=== PATIENT | female | born 1965 | race Caucasian/White ===

== ENCOUNTER 2016-12-21 12:08 | Emergency (ER) | payer OTHER ==
--- NOTE | 2016-12-21 14:10 | ED Physician Documentation ---
PD HPI UPPER EXT INJURY - Stated complaint Stated Complaint: LEFT ARM INJ - Chief complaint Chief Complaint: Ext Problem - History obtained from History obtained from: Patient - History of Present Illness Location: Other (She was jumping over a ditch and tripped and fell on an outstretched left arm and complains of wrist, elbow, shoulder pain. No other injuries. No head or neck injury. This happened today a little after 11 AM. She declines pain medication on initial evaluation.) Review of Systems Constitutional: reports: Reviewed and negative Ears: reports: Reviewed and negative Nose: reports: Reviewed and negative Throat: reports: Reviewed and negative PD PAST MEDICAL HISTORY - Past Medical History Past Medical History: No Other Past Medical History: hypothyroid, back injury - Past Surgical History Past Surgical History: Yes General: Cholecystectomy - Present Medications Home Medications: Ambulatory Orders Medication Instructions Recorded Confirmed HYDROcod/ACETAM 5/325 [[place] 5/325] 1 - 2 ea PO Q6H PRN #15 tablet 12/21/16 Levothyroxine Sodium [Synthroid] 137 mcg PO DAILY 12/21/16 12/21/16 - Allergies Allergies/Adverse Reactions: Allergies Allergy/AdvReac Type Severity Reaction Status Date / Time cephradine [From Velosef] Allergy Rash Verified 12/21/16 12:21 Penicillins Allergy Unknown Verified 12/21/16 12:21 Sulfa (Sulfonamide Allergy Unknown Verified 12/21/16 12:21 Antibiotics) - Social History Does the pt smoke?: No Smoking Status: Never smoker Does the pt drink ETOH?: No Does the pt have substance abuse?: No PD ED PE NORMAL - Vitals Vital signs reviewed: Yes - General General: Alert and oriented X 3, No acute distress - HEENT HEENT: PERRL, EOMI - Neck Neck: Supple, no meningeal sign, No bony TTP - Extremities Extremities: Other (Left wrist is mildly tender over the dorsum, not the snuffbox. She does have limited range of motion, both flexion and extension due to pain. The elbow is tender over the olecranon and radial head, mildly, limited range of motion but that may be referred from the shoulder which is quite tender over the humeral head and has no range of motion there. She has good radial pulse and normal sensation in all areas of the hand. The remainder of her extremities are nontender.) - Neuro Neuro: Alert and oriented X 3, Normal speech - Psych Psych: Normal mood, Normal affect Results - Vitals Vitals: Vital Signs - 24 hr 12/21/16 12/21/16 12:17 14:58 Temperature 36.7 C Heart Rate 78 79 Respiratory 16 16 Rate Blood Pressure 151/102 H 143/92 H O2 Saturation 98 97 Oxygen O2 Source Room air - Rads (name of study) L wrist Radiology: EMP read contemporaneously, See rad report L humerus Radiology: EMP read contemporaneously, See rad report L elbow Radiology: EMP read contemporaneously, See rad report PD MEDICAL DECISION MAKING - ED course ED course: 51-year-old woman after ground-level fall basically with a left humeral head fracture but no other fractures on x-ray. The patient and family were counseled as to the diagnosis and need for follow- up. I counseled the patient with regard to signs and symptoms that would necessitate an urgent reevaluation in the emergency department. They understand they are welcome to return at any time if worse or if not improving as expected. This document was made in part using voice recognition software. While efforts are made to proofread this documents, sound alike and grammatical errors may occur. Departure - Departure Disposition: 01 Home, Self Care Clinical Impression: Fracture of humeral head, left, closed Qualifiers: Encounter type: sequela Qualified Code(s): S42.292S - Other displaced fracture of upper end of left humerus, sequela Left wrist sprain Qualifiers: Encounter type: initial encounter Qualified Code(s): S63.502A - Unspecified sprain of left wrist, initial encounter Left elbow contusion Qualifiers: Encounter type: initial encounter Qualified Code(s): S50.02XA - Contusion of left elbow, initial encounter Condition: Good Record reviewed to determine appropriate education?: Yes Instructions: Humerus Fx Prescriptions: HYDROcod/ACETAM 5/325 [[place] 5/325] 1 - 2 ea PO Q6H PRN #15 tablet PRN Reason: Pain Comments: [place]-rays on CD with you. Return if worse. Your blood pressure was elevated today on check into the emergency department. This does not mean that you have hypertension, it is a common phenomenon to come to the emergency department and have elevated blood pressure. I recommend that she see your primary care physician within the week to have it rechecked when you are feeling better. Do not drink or drive while taking narcotic pain medication. Note that many narcotic pain relievers also contain Tylenol/acetaminophen. Please ensure that your total dose of acetaminophen from all sources does not exceed 3 g (3000 mg) per day. You may get constipated while on this medication. Take a stool softener such as Colace twice a day while you are on it. Also add an ykur-iur-ociqrfk laxative such as senna or MiraLAX on any day that you do not have a bowel movement. If you received a narcotic pain medication or sedative while in the emergency department, do not drive for the next 24 hours. Forms: Activity restrictions Discharge Date/Time: 12/21/16 15:00
--- NOTE | 2016-12-21 14:22 | XRAY Preliminary Report ---
Exam: XR Shoulder 3 View LT IMPRESSION: 1. Positive for proximal humerus fracture across humeral neck and base of greater tuberosity. [facility] SITE ID: [id number]
--- NOTE | 2016-12-21 14:23 | XRAY Preliminary Report ---
Exam: XR Wrist 4 View LT IMPRESSION: Normal wrist radiography. [facility] SITE ID: [id number]
--- NOTE | 2016-12-21 14:24 | XRAY Report ---
EXAM: LEFT SHOULDER RADIOGRAPHY EXAM DATE: 12/21/2016 01:58 PM. CLINICAL HISTORY: Fall with arm injury. COMPARISON: None. TECHNIQUE: 3 views. FINDINGS: Bones: Positive for a fracture of the proximal left humerus. There is a fracture across the base of t he greater tuberosity and a fracture extending transversely across the humeral neck. Fracture of liz ral neck appears nondisplaced. Joints: No dislocation. Soft tissues: The visualized hemithorax is unremarkable. No soft tissue swelling. IMPRESSION: 1. Positive for proximal humerus fracture across humeral neck and base of greater tuberosity. [facility] Referring Provider Line: [phone] SITE ID: [id number]
--- NOTE | 2016-12-21 14:26 | XRAY Report ---
EXAM: LEFT WRIST RADIOGRAPHY EXAM DATE: 12/21/2016 01:58 PM. CLINICAL HISTORY: Fall with left wrist pain. COMPARISON: None. TECHNIQUE: 4 views. FINDINGS: Bones: Normal. No fractures or bone lesions. Joints: Normal. No subluxations. Soft Tissues: Normal. No soft tissue swelling. IMPRESSION: Normal wrist radiography. [facility] Referring Provider Line: [phone] SITE ID: [id number]
[2016-12-21 14:59] VITALS: BP 143/92
--- NOTE | 2016-12-21 15:03 | XRAY Preliminary Report ---
Exam: XR Elbow 3 View LT IMPRESSION: Normal elbow radiography. [facility] SITE ID: [id number]
--- NOTE | 2016-12-21 15:06 | XRAY Report ---
EXAM: LEFT ELBOW RADIOGRAPHY EXAM DATE: 12/21/2016 02:30 PM. CLINICAL HISTORY: Elbow inj. COMPARISON: None. TECHNIQUE: 4 views. FINDINGS: Bones: Normal. No fractures or bone lesions. Joints: Normal. No effusion. No subluxation. Soft Tissues: Normal. No soft tissue swelling. IMPRESSION: Normal elbow radiography. [facility] Referring Provider Line: [phone] SITE ID: [id number]
== END 2016-12-21 15:00 | disposition home or self-care (01) ==
LOC: ED 12:08
DX: S42.292A Other displaced fracture of upper end of left humerus, initial encounter for closed fracture (principal); S63.502A Unspecified sprain of left wrist, initial encounter; S50.02XA Contusion of left elbow, initial encounter; W01.0XXA Fall on same level from slipping, tripping and stumbling without subsequent striking against object, initial encounter; Y93.39 Activity, other involving climbing, rappelling and jumping off; Y92.89 Other specified places as the place of occurrence of the external cause; R03.0 Elevated blood-pressure reading, without diagnosis of hypertension
CPT/HCPCS: 99283

== ENCOUNTER 2022-10-30 11:37 | Emergency (ER) | payer OTHER ==
[2022-10-30 12:02] VITALS: BP 147/84
--- NOTE | 2022-10-30 12:53 | ED Physician Documentation ---
PD HPI LOWER EXT INJURY - Stated complaint Stated Complaint: LT KNEE PX - Chief complaint Chief Complaint: Ext Problem - History of Present Illness PD HPI LOW EXT INJURY LOCATION: Left (Walking around a lot recently without specific injury and left knee is hurting.) PD PAST MEDICAL HISTORY - Past Surgical History Past Surgical History: Yes General: Cholecystectomy - Present Medications Home Medications: Ambulatory Orders Medication Instructions Recorded Confirmed HYDROcod/ACETAM 5/325 [[place] 5/325] 1 - 2 ea PO Q6H PRN #15 tablet 12/21/16 Levothyroxine Sodium [Synthroid] 137 mcg PO DAILY 12/21/16 12/21/16 Meloxicam [Mobic] 7.5 mg PO BID PRN #20 tablet 10/30/22 - Allergies Allergies/Adverse Reactions: Allergies Allergy/AdvReac Type Severity Reaction Status Date / Time cephradine [From Velosef] Allergy Rash Verified 12/21/16 12:21 Penicillins Allergy Unknown Verified 12/21/16 12:21 Sulfa (Sulfonamide Allergy Unknown Verified 12/21/16 12:21 Antibiotics) - Social History Does the pt smoke?: No Smoking Status: Never smoker Does the pt drink ETOH?: No Does the pt have substance abuse?: No PD ED PE NORMAL - Vitals Vital signs reviewed: Yes - General General: Alert and oriented X 3, No acute distress - Extremities Extremities: Other (There is an effusion of the left knee, no warmth or redness. Mildly limited range of motion due to pain. No specific bony tenderness or ligamentous laxity.) Results - Vitals Vitals: Vital Signs - 24 hr 10/30/22 11:54 Temperature 36.7 C Heart Rate 65 Respiratory 18 Rate Blood Pressure 147/84 H O2 Saturation 97 Oxygen O2 Source Room air - Rads (name of study) L knee XR- mod OA with effusion Relevant Findings:: Final report received, EMP independent interpretation of test PD Medical Decision Making - ED course ED course: 57-year-old woman with knee pain seemingly from osteoarthritis. No ligamentous injury or fracture. No evidence of infection. H&P is inconsistent with thromboembolic or vascular disease. Departure - Departure Disposition: 01 Home, Self Care Clinical Impression: Osteoarthritis of left knee Condition: Good Record reviewed to determine appropriate education?: Yes Instructions: ED Degenerative Joint Disease Follow-Up: Orthopedic Care [Provider Group] Prescriptions: Meloxicam [Mobic] 7.5 mg PO BID PRN #20 tablet PRN Reason: Pain Comments: Followup with orthopedics for further evaluation and treatment. Return for new/worse symptoms. Forms: PCP List, Activity restrictions Discharge Date/Time: 10/30/22 13:21
--- NOTE | 2022-10-30 13:32 | XRAY Report ---
PROCEDURE: Knee 4 View LT INDICATIONS: Trauma TECHNIQUE: 4 views of the left knee(s) were acquired. COMPARISON: None. FINDINGS: Bones: No fractures or dislocations. Moderate tricompartmental osteoarthritis is seen more notably i n medial femoral tibial compartment. No patella subluxation. No suspicious bony lesions. Soft tissues: Moderate knee joint effusion. No suspicious soft tissue calcifications or masses. IMPRESSION: No acute left knee fracture or dislocation. Moderate tricompartmental osteoarthritis and moderate payal nt effusion as above. Reviewed by: Kemal Wong MD on 10/30/2022 12:25 PM PDT Approved by: Kemal Wong MD on 10/30/2022 12:25 PM PDT Station ID: [id number]
== END 2022-10-30 13:21 | disposition home or self-care (01) ==
LOC: ED 11:37
DX: M17.12 Unilateral primary osteoarthritis, left knee (principal)
CPT/HCPCS: 99283; 99284

== ENCOUNTER 2023-04-06 15:40 | Outpatient (CLI) | payer OTHER ==
[2023-04-07 16:07] LABS: KAPPA FREE LT CHAINS SERUM 18.7 mg/L (3.3-19.4); LAMBDA FREE LT CHAINS SERUM 10.4 mg/L (5.7-26.3)
[2023-04-10 11:08] LABS: A/G RATIO 1.5 (0.7-1.7); ALBUMIN 4.1 g/dL (2.9-4.4); ALPHA-1-GLOBULIN 0.2 g/dL (0.0-0.4); ALPHA-2-GLOBULIN 0.8 g/dL (0.4-1.0); BETA GLOBULIN 1.1 g/dL (0.7-1.3); GAMMA GLOBULIN 0.7 g/dL (0.4-1.8); GLOBULIN, TOTAL 2.8 g/dL (2.2-3.9); PROTEIN TOTAL 6.9 g/dL (6.0-8.5)
== END 2023-04-06 15:41 | disposition home or self-care (01) ==
LOC: LAB 15:40
PROVIDERS: ATTEND Internal Medicine Endocrinology, Diabetes & Metabolism
DX: E03.8 Other specified hypothyroidism (principal); E83.52 Hypercalcemia
CPT/HCPCS: 36415; 82164; 82784; 83521; 84155; 84165; 84443; 86334

== ENCOUNTER 2023-04-09 08:00 | Outpatient (CLI) | payer OTHER | END 2023-04-09 23:59 | disposition home or self-care (01) | LOC: LAB.R 08:00 | PROVIDERS: ATTEND Internal Medicine Endocrinology, Diabetes & Metabolism | DX: E83.52 Hypercalcemia (principal) | CPT/HCPCS: 81599; 84156; 84166 ==

== ENCOUNTER 2023-05-16 17:19 | Outpatient (CLI) | payer OTHER ==
[2023-05-16 17:43] LABS: ALBUMIN 4.5 g/dL (3.2-5.5); CALCIUM 11.1 mg/dL (8.5-10.3)
[2023-05-16 18:00] LABS: THYROID STIMULATING HORMONE 2.76 uIU/mL (0.34-5.60)
== END 2023-05-16 17:20 | disposition home or self-care (01) ==
LOC: LAB 17:19
PROVIDERS: ATTEND Internal Medicine Endocrinology, Diabetes & Metabolism
DX: E03.8 Other specified hypothyroidism (principal); E55.9 Vitamin D deficiency, unspecified; E21.3 Hyperparathyroidism, unspecified; M85.851 Other specified disorders of bone density and structure, right thigh; M85.852 Other specified disorders of bone density and structure, left thigh
CPT/HCPCS: 36415; 82040; 82310; 84443